=== PATIENT | female | born 1985 | race African-American/Black ===

== ENCOUNTER 2017-08-09 14:32 | Emergency (ER) | payer BC, OTHER ==
[2017-08-09 14:46] VITALS: BP 143/79; PULSE 90; TEMP 97.3; BMI 36.9
[2017-08-09] MEDS ORDERED: IBUPROFEN 600 MG TABLET (FP) PO ONE ×2 (15:40→15:46)
--- NOTE | 2017-08-09 15:40 | PDOC ---
History of Present Illness - General Chief Complaint: Bone Injury Stated Complaint: RT THUMB INJURY Time Seen by Provider: 08/09/17 14:55 - History of Present Illness Initial Comments: 08/09/17 15:09 CHIEF COMPLAINT: thumb pain HISTORY OF PRESENT ILLNESS: 32 yo F with no significant PMH presents to fast track with pain to R thumb s/p injury yesterday. Patient states she was " trying to catch a door from falling down on my head" and it bent her thumb backwards. Patient denies any injury to any other part of her body. Patient states she is able to move her thumb "but it hurts down at the bottom when I move it." PAST MEDICAL HISTORY: Denies past medical history FAMILY HISTORY: Denies SOCIAL HISTORY: Denies tobacco, alcohol, illicit drug use. SURGICAL HISTORY: Denies ALLERGIES: No known drug allergies REVIEW OF SYSTEMS as per HPI PHYSICAL EXAM General Appearance: Well-appearing, appropriately dressed. No apparent distress. HEENT: EOMI, PERRLA, normal ENT inspection, normal voice, TMs normal, pharynx normal. No conjunctival pallor. No photophobia, scleral icterus. Respiratory/Chest: Lungs CTAB. Cardiovascular: RRR. S1, S2. Musculoskeletal/Extremities: Minimal swelling to base of R thumb with tenderness on palpation but will FROM. FROM of all other extremities, normal capillary refill. Pelvis Stable. No CVA tenderness. No tenderness to extremities, pedal edema, swelling, erythema or deformity. Integumentary: Appropriate color, dry, warm. No cyanosis, erythema, jaundice or rash Neurologic: earth burner II-XII intact. Fully oriented, alert. Appropriate mood/affect. Motor strength 5/5. No appreciable EOM palsy, facial droop or sensory deficit. Past History - Past Medical History Allergies/Adverse Reactions: Allergies Allergy/AdvReac Type Severity Reaction Status Date / Time No Known Drug Allergies Allergy Verified 08/09/17 14:42 Home Medications: Ambulatory Orders Naproxen 250 mg PO BID #14 tablet 08/09/17 COPD: No Thyroid Disease: No - Suicide/Smoking/Psychosocial Hx Smoking History: Former smoker Have you smoked in the past 12 months: No Number of Cigarettes Smoked Daily: 3 Information on smoking cessation initiated: No 'Breaking Loose' booklet given: 03/31/13 Hx Alcohol Use: No Drug/Substance Use Hx: No Substance Use Type: None *Physical Exam - Vital Signs Last Vital Signs Temp Pulse Resp BP Pulse Ox 97.3 F L 90 18 143/79 100 08/09/17 14:42 08/09/17 14:42 08/09/17 14:42 08/09/17 14:42 08/09/17 14:42 Medical Decision Making - Medical Decision Making 08/09/17 16:05 32 yo F with no significant PMH presents to fast track with pain to R thumb s/p injury yesterday. Patient denies any chance of . X-ray negative for fracture or dislocation. Patient refuses Toradol. 600 mg ibuprofen given. Advised patient to take medication as prescribed and follow up with ortho in one week if symptoms persist. Advised patient of signs and symptoms for return to ED. Patient verbalized understanding and agrees to plan. *DC/Admit/Observation/Transfer Diagnosis at time of Disposition: Sprain of hand, thumb, right - Discharge Dispostion Disposition: HOME Condition at time of disposition: Stable Admit: No - Prescriptions Prescriptions: Naproxen 250 mg PO BID #14 tablet - Referrals Referrals: Ld Mccain MD [Staff Physician] - - Patient Instructions Printed Discharge Instructions: How To Perform RICE (Rest, Ice, Compress, Elevate), DI for Ulnar Collateral Ligament Sprain of Thumb Additional Instructions: Please take Aleve twice a day and apply RICE therapy as discussed. Follow up with orthopedics (hand specialist) in 5-7 days if symptoms persist. If you develop any loss of sensation to your thumb, worsening pain, or any new or worsening symptoms, please return to the ER. - Post Discharge Activity
== END 2017-08-09 16:00 | disposition home or self-care (01) ==
LOC: JERFT 14:32 → JER 14:32 → JERFT 16:00
DX: S63.681A Other sprain of right thumb, initial encounter (principal); X50.0XXA Overexertion from strenuous movement or load, initial encounter; Y93.89 Activity, other specified; Y92.89 Other specified places as the place of occurrence of the external cause; Y99.8 Other external cause status
CPT/HCPCS: 73110-TC-RT; 73130-TC-RT; 99281-25